=== PATIENT | female | born 1960 | race Caucasian/White ===

== ENCOUNTER 2016-12-23 23:14 | Emergency (ER) | payer OTHER ==
[2016-11-13 16:47] VITALS: BP 130/86
[~2016-12-23 23:14] MED LIST: AMLO10TA2 PO; ASCO500T2 PO; BACL10TA PO; CIPR250T30 PO; CLON1TAB3 PO; CLON2TAB2 PO; CLOP75TA PO; DOXE50CA PO; DULO60CA6 PO; GABA800T2 PO; HYDR-2678 PO; HYDR25TA9 PO; Ipratropium/Albuterol Sulfate NEB; LOSA100T6 PO; METO25TA9 PO; PRED20TA PO; TRAZ100T12 PO; VENL75TA PO; ZINC220C5 PO; [UNRECOGNIZED DRUG - OTHER] PO; amiodipine PO
== END 2016-12-24 00:15 | disposition home or self-care (01) ==
LOC: ER 23:14
DX: R51 Headache (principal); Z53.21 Procedure and treatment not carried out due to patient leaving prior to being seen by health care provider

== ENCOUNTER → 2017-07-20 | Outpatient (CLI) | payer OTHER ==
[2016-11-13 16:47] VITALS: BP 130/86
[~2017-07-20] MED LIST changes: +METO-239 PO; -METO25TA9 PO; +TRAZ-90 PO; -TRAZ100T12 PO
--- NOTE | 2017-07-20 16:09 | RAD ---
Left RIBS with chest, 3 views, 07/20/2017: History: Fall, chest wall pain The bony structures are demineralized. No left rib fracture is identified. There is no evidence of underlying pneumothorax, hemothorax or pulmonary infiltrate. There is scarring over the pulmonary apices. There is a mild thoracic scoliosis. IMPRESSION: No acute left rib abnormality is detected.
== END | disposition home or self-care (01) ==
LOC: DXRADRC 15:44
PROVIDERS: ATTEND General Practice
DX: S20.212A Contusion of left front wall of thorax, initial encounter (principal); J98.4 Other disorders of lung; M41.84 Other forms of scoliosis, thoracic region; E11.9 Type 2 diabetes mellitus without complications; F17.200 Nicotine dependence, unspecified, uncomplicated; W19.XXXA Unspecified fall, initial encounter; Y93.89 Activity, other specified; Y92.89 Other specified places as the place of occurrence of the external cause; Y99.8 Other external cause status
CPT/HCPCS: 71101

== ENCOUNTER 2018-03-07 22:10 | Inpatient (IN) | payer OTHER ==
[~2018-03-07] VITALS: Ht 157.5 cm; Wt 51.1 kg
[~2018-03-07 22:10] MED LIST changes: -CLON1TAB3 PO; +CLON1TAB4 PO; -CLON2TAB2 PO; +CLON2TAB9 PO
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
[2018-03-07 22:53] LABS: BASO # 0.1 x10^3/uL (0.0-0.2); BASO % 1 % (0-3); EOS # 0.3 x10^3/uL (0.0-0.7); EOS % 3 % (0-3); HEMATOCRIT 43.1 % (36.0-47.0); HEMOGLOBIN 14.4 g/dL (12.0-15.5); LYMPH % 32 % (24-48); MEAN CORPUSCULAR HEMOGLOBIN 29 pg (25-35); MEAN CORPUSCULAR HGB CONC 33 g/dL (31-37); MEAN CORPUSCULAR VOLUME 87 fL (79-100); MONO # 0.6 x10^3/uL (0.0-1.1); MONO % 7 % (0-9); NEUT # 5.3 x10^3uL (1.8-7.7); NEUT % 57 % (31-73); PLATELET COUNT 461 x10^3/uL (140-400); RED BLOOD COUNT 4.95 x10^6/uL (3.50-5.40); RED CELL DISTRIBUTION WIDTH 14.5 % (11.5-14.5); WHITE BLOOD COUNT 9.4 x10^3/uL (4.0-11.0)
[2018-03-07] MEDS ORDERED: ZIPRASIDONE IM 20 MG VIAL. IM ONE (23:00)
[2018-03-07 23:08] LABS: ALBUMIN 3.6 g/dL (3.4-5.0); ALBUMIN/GLOBULIN RATIO 0.8 (1.0-1.7); CALCIUM 8.7 mg/dL (8.5-10.1); CREATININE 0.7 mg/dL (0.6-1.0); GFR 86.9; MAGNESIUM 2.6 mg/dL (1.8-2.4); POTASSIUM 3.8 mmol/L (3.5-5.1); TOTAL BILIRUBIN 0.2 mg/dL (0.2-1.0)
[2018-03-07 23:19] LABS: BACTERIA,URINE 0 /HPF (0-FEW); BARBITURATES NEG (NEG); BENZODIAZEPINES POS (NEG); BILIRUBIN,URINE NEG (NEG); CANNABINOIDS NEG (NEG); CLARITY,URINE CLEAR; COCAINE NEG (NEG); COLOR,URINE YELLOW; GLUCOSE,URINE NEG (NEG); METHADONE NEG (NEG); NITRITE,URINE NEG (NEG); OPIATES NEG (NEG); PHENCYCLIDINE NEG (NEG); RBC,URINE 0 /HPF (0-2); SQUAMOUS EPITHELIAL CELL,UR OCC /LPF; UROBILINOGEN,URINE 0.2 mg/dL (0.2 mg/dL); WBC,URINE OCC /HPF (0-4)
[2018-03-07 23:20] LABS: AMPHETAMINE/METHAMPHETAMINE POS (NEG)
--- NOTE | 2018-03-07 23:47 | EKG ---
[address] [address] Test Date: 2018-03-07 Test Time: 23:42:34 Pat Name: SUSSY REYNAGA Department: Room: Gender: F Ct Technician: COOKIE : 1960 Requested By: CHANTEL ESTES Order Number: [id number] Reading MD: Kyle Dawson MD Measurements Intervals [place] Rate: 93 P: 58 MO: 152 QRS: 52 QRSD: 80 T: 67 QT: 390 QTc: 488 Interpretive Statements SINUS RHYTHM Electronically Signed On 03-13-2018 13:42:56 CDT by Kyle Dawson MD
[2018-03-08] VITALS (11 sets, daily range): BP systolic 92–167; BP diastolic 60–102
--- NOTE | 2018-03-08 00:01 | RAD ---
Indication: Intoxicated. Trauma to head and face. Epistaxis. Lacerations. Limited clinical exam Technique: Noncontrast CT head was obtained. CT cervical spine includes axial images and coronal and sagittal reformatted images. No comparison is available. One or more of the following individualized dose reduction techniques were utilized for this examination: 1. Automated exposure control 2. Adjustment of the mA and/or kV according to patient size 3. Use of iterative reconstruction technique Findings: Head: There is prominence of the ventricles and sulci. There are old infarcts involving the right temporal lobe, right parietal lobe, right frontal lobe, left frontal lobe, left parietal lobe, and left cerebellum. There is no evidence of an acute infarct. There is no acute intracranial hemorrhage or extra-axial fluid collection. There is no mass effect or midline shift. There is right maxillary and bilateral ethmoid mucosal thickening. Mastoid air cells are clear. Cervical spine: There is no fracture or dislocation. Prevertebral soft tissues are within normal limits. There is straightening of cervical lordosis. Craniovertebral junction is unremarkable. Endplate spurring is noted from C3-C4 through C7-T1. There is also uncinate process spurring. There is probably mild canal stenosis at C3-C4, C4-C5, and C5-C6. There are several levels of high-grade foraminal narrowing. There are carotid artery calcifications. There is presumed apical scarring in the left lung apex. IMPRESSION: Head: 1. No acute intracranial findings. 2. Multiple old infarcts. Cervical spine: 1. Negative for an acute fracture or dislocation in the cervical spine. 2. Degenerative changes in the cervical spine. Electronically signed by: Dick Mccallum MD (03/07/2018 11:57 PM) [facility]
--- NOTE | 2018-03-08 00:08 | RAD ---
Indication: Intoxicated. Trauma. Epistaxis. Swelling. Technique: Axial images and coronal and sagittal reformatted images are provided. No comparison is available. One or more of the following individualized dose reduction techniques were utilized for this examination: 1. Automated exposure control 2. Adjustment of the mA and/or kV according to patient size 3. Use of iterative reconstruction technique Findings: There is no orbital fracture. Zygomatic arches are intact. There is probably a nasal bone fracture on the left although this is not clearly acute. Pterygoid plates are intact. There is motion at the level of the mandible, no definite mandible fracture. The left mandibular condyle is subluxed anteriorly although given flattening of the mandibular condyle this may be a chronic process. No definite fracture at this site is apparent. Correlate clinically. There is ethmoid and maxillary mucosal thickening, greater on the right. There is no hemosinus. Mastoid air cells are clear. Orbital contents are unremarkable. There is nasal septal deviation to the left. IMPRESSION: 1. Motion limited study demonstrates no definite acute fracture. There is a nasal bone fracture on the left although this is not clearly acute. Electronically signed by: Dick Mccallum MD (03/08/2018 12:04 AM) [facility]
[2018-03-08] MEDS ORDERED: ONDANSETRON PF 4 MG/2 ML VIAL. IV PRN (01:00)
[2018-03-08] MEDS ORDERED: ACETAMINOPHEN 325 MG TABLET PO PRN (01:00)
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
[2018-03-08] MEDS: IV NORMAL SALINE 1,000ML 1,000 ML IV SCH ×3 (01:21→16:58)
[2018-03-08 08:51] LABS: BASO # 0.1 x10^3/uL (0.0-0.2); BASO % 1 % (0-3); EOS # 0.2 x10^3/uL (0.0-0.7); EOS % 2 % (0-3); HEMATOCRIT 40.3 % (36.0-47.0); HEMOGLOBIN 13.3 g/dL (12.0-15.5); LYMPH # 2.2 x10^3/uL (1.0-4.8); LYMPH % 16 % (24-48); MEAN CORPUSCULAR HEMOGLOBIN 29 pg (25-35); MEAN CORPUSCULAR HGB CONC 33 g/dL (31-37); MEAN CORPUSCULAR VOLUME 87 fL (79-100); MONO # 0.8 x10^3/uL (0.0-1.1); MONO % 6 % (0-9); NEUT # 10.3 x10^3uL (1.8-7.7); NEUT % 76 % (31-73); PLATELET COUNT 436 x10^3/uL (140-400); RED BLOOD COUNT 4.63 x10^6/uL (3.50-5.40); RED CELL DISTRIBUTION WIDTH 14.6 % (11.5-14.5); WHITE BLOOD COUNT 13.6 x10^3/uL (4.0-11.0)
[2018-03-08 08:54] LABS: CREATININE 0.6 mg/dL (0.6-1.0); GFR 103.8; POTASSIUM 4.1 mmol/L (3.5-5.1)
[2018-03-08] MEDS ORDERED: HYDR-2766 PO (10:46)
[2018-03-08] MEDS ORDERED: HYDROcodone/APAP 5/325MG 1 TAB TABLET PO PRN (11:15)
[2018-03-08] MEDS ORDERED: clonazePAM 1 MG TABLET PO PRN (11:15)
[2018-03-08] MEDS: HYDROcodone/APAP 10/325 1 TAB TABLET PO PRN ×3 (11:59→21:53)
[2018-03-08] MEDS: clonazePAM 1 MG TABLET PO PRN ×2 (11:59→17:10)
[2018-03-08] MEDS: NICOTINE 14MG PATCH. TD SCH (12:48)
[2018-03-08] MEDS ORDERED: ONDA4TAB12 PO (14:07)
[2018-03-08] MEDS ORDERED: ATOR10TA60 PO (14:07)
[2018-03-08] MEDS ORDERED: CITA10TA4 PO (14:07)
[2018-03-08] MEDS ORDERED: AMLO10TA2 PO (14:07)
--- NOTE | 2018-03-08 14:43 | NUR ---
IP: patient has hx of +MRSA nasal screen 06/21/15, requires contact precautions until 2 negative results. One negative result from 09/11/2015.
--- NOTE | 2018-03-08 15:32 | RAD ---
PQRS Compliance Statement: One or more of the following individualized dose reduction techniques were utilized for this examination: 1. Automated exposure control 2. Adjustment of the mA and/or kV according to patient size 3. Use of iterative reconstruction technique CT chest without contrast March 08, 2018 INDICATION: Rib and shoulder fracture. COMPARISON: Left rib radiograph July 20, 2017. TECHNIQUE: Multiple axial CT images of the chest were obtained without intravenous contrast. Coronal and sagittal reformats are provided. FINDINGS: The thyroid gland is normal in appearance. There are no pathologically enlarged axillary, mediastinal or hilar lymph nodes. Heart size is within normal limits. There is no pericardial effusion. Minor coronary artery vascular calcific effusions are present. Thoracic aorta measures up to 3.5 cm. Minor atherosclerotic changes of the thoracic aorta are present. Patchy groundglass changes are identified in the bilateral lower lobes which may reflect subsegmental atelectasis. More tree-in-bud nodularity is noted in the left lower lobe which may reflect a bronchiolitis. Bronchial wall thickening is compatible with bronchitis. There are no pleural effusions. No pulmonary vascular congestion or pneumothorax. Suspect a 2.1 cm simple appearing renal cyst in the superior pole the right kidney. This may be confirmed with renal ultrasound. There is focal increased sclerosis involving the anterolateral left eighth rib which is partially excluded on this examination due to the field of view. This may represent a nondisplaced rib fracture. Motion artifact limits evaluation of the right ribs. No definite scapular fracture is visualized. Proximal humerus appears intact on the right. Right glenohumeral joint is normal in appearance. IMPRESSION: 1. There may be a nondisplaced left anterolateral eighth rib fracture. No definite right shoulder fracture. 2. Bronchitis with tree-in-bud nodular airspace disease in the left lower lobe suggestive of infectious/inflammatory bronchiolitis. Electronically signed by: Jaylin Vidal MD (03/08/2018 3:29 PM) [facility]
[2018-03-08] MEDS ORDERED: clonazePAM 2 MG TABLET PO PRN (17:00)
[2018-03-08] MEDS ORDERED: ONDANSETRON 4MG ODT 4TABLET STARTPACK. PO PRN (17:15)
[2018-03-08] MEDS ORDERED: ONDANSETRON ODT 4 MG TAB.RAPDIS PO PRN (17:15)
[2018-03-08] MEDS: LIDOCAINE (700MG/PATCH) PATCH. TD SCH (17:18)
[2018-03-08] MEDS: IPRATRPIUM/ALBUTEROL 0.5/2.5MG 3 ML NEBU. NEB SCH ×2 (17:44→22:00)
[2018-03-08] MEDS ORDERED: NON FORMULARY ITEM ([Ipratropium/Albuterol Sulfate] 3 ML) NEB SCH (18:00)
--- NOTE | 2018-03-08 19:45 | NUR ---
Pt is restless and is requesting her pain medication. She had received her pain meds 2 hours ago and it is too early for them. Pt is worried that her "son" has not brought her purse to hospital. Patient states she does not know her "son"s name or what name he is going by right now. Pt also states he is not her biological son. She does not have any correct phone numbers for any friends. Explained to pt that we can not locate her "son" if she can not provide us with a name. She is remembering more of the events of last night, but can not remember his name.
[2018-03-08] MEDS ORDERED: PATCH REMOVAL. MC SCH (21:00)
[2018-03-08] MEDS ORDERED: traZODone 100 MG TABLET. PO SCH (21:00)
[2018-03-08] MEDS ORDERED: ATORVASTATIN CALCIUM 10 MG TABLET. PO SCH (21:00)
[2018-03-08] MEDS: GABAPENTIN 400 MG CAPSULE. PO SCH (21:52)
[2018-03-08] MEDS: BACLOFEN 10 MG TABLET PO SCH (21:52)
[2018-03-09 05:46] VITALS: BP 129/80
[2018-03-09] MEDS: HYDROcodone/APAP 10/325 1 TAB TABLET PO PRN ×2 (05:54→12:31)
[2018-03-09] MEDS: IPRATRPIUM/ALBUTEROL 0.5/2.5MG 3 ML NEBU. NEB SCH ×3 (06:00→14:00)
[2018-03-09 07:54] LABS: BASO # 0.1 x10^3/uL (0.0-0.2); BASO % 1 % (0-3); EOS # 0.3 x10^3/uL (0.0-0.7); EOS % 3 % (0-3); HEMATOCRIT 38.9 % (36.0-47.0); HEMOGLOBIN 12.8 g/dL (12.0-15.5); LYMPH # 2.9 x10^3/uL (1.0-4.8); LYMPH % 31 % (24-48); MEAN CORPUSCULAR HEMOGLOBIN 29 pg (25-35); MEAN CORPUSCULAR HGB CONC 33 g/dL (31-37); MEAN CORPUSCULAR VOLUME 88 fL (79-100); MONO # 0.8 x10^3/uL (0.0-1.1); MONO % 8 % (0-9); NEUT # 5.2 x10^3uL (1.8-7.7); NEUT % 57 % (31-73); PLATELET COUNT 366 x10^3/uL (140-400); RED BLOOD COUNT 4.43 x10^6/uL (3.50-5.40); RED CELL DISTRIBUTION WIDTH 14.7 % (11.5-14.5); WHITE BLOOD COUNT 9.1 x10^3/uL (4.0-11.0)
[2018-03-09 08:05] LABS: CALCIUM 8.9 mg/dL (8.5-10.1); CREATININE 0.8 mg/dL (0.6-1.0); GFR 74.5; POTASSIUM 3.9 mmol/L (3.5-5.1)
[2018-03-09] MEDS ORDERED: CLOPIDOGREL BISULFATE 75 MG TABLET PO SCH (09:00)
[2018-03-09] MEDS ORDERED: CITALOPRAM 10 MG TABLET. PO SCH (09:00)
[2018-03-09] MEDS ORDERED: amLODIPine BESYLATE 10 MG TABLET PO SCH (09:00)
[2018-03-09] MEDS: LIDOCAINE (700MG/PATCH) PATCH. TD SCH (09:00)
[2018-03-09] MEDS ORDERED: LOSARTAN 50 MG TABLET. PO SCH (09:00)
[2018-03-09] MEDS: GABAPENTIN 400 MG CAPSULE. PO SCH ×3 (09:17→18:04)
[2018-03-09] MEDS: clonazePAM 1 MG TABLET PO PRN ×2 (09:17→17:49)
[2018-03-09] MEDS: BACLOFEN 10 MG TABLET PO SCH ×3 (09:18→18:04)
[2018-03-09] MEDS: NICOTINE 14MG PATCH. TD SCH (09:20)
[2018-03-09 11:46] VITALS: BP 108/67
--- NOTE | 2018-03-09 16:48 | NUR ---
Spoke with Dilia from Dr. Avina office, states she is getting fitting for a wheelchair next tuesday and will need to go into the office to be fitted. Plan is to discharge from hospital today with [facility] to take patient to residence. IV discontinued at this time. Only belongings patient has is shoes, shirt and two bottles of Klonipin. No wheelchair or purse was brought in with patient. Wheelchair and clothes have been donated to on license of [facility] and [facility] welfare case worker aware of patient status and is working with patient.
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
--- NOTE | 2018-03-09 18:20 | NUR ---
[facility] here at this time, patient left hospital with wheelchair donated and belongings. Patient understand discharge instructions at this time.
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
--- NOTE | 2018-03-10 14:36 | DS ---
DATE OF DISCHARGE: 03/09/2018 HOSPITAL COURSE: The patient was admitted with toxic encephalopathy, closed head injury as well as possible nasal bone fracture. Her imaging studies showed no evidence of any acute fracture or dislocation of her cervical spine. There was no intracranial hemorrhage, but on other pathologies; however, she has multiple old infarcts. The nasal bone fracture was per the radiologist reports seemed to be an old fracture. The patient remained hemodynamically stable, back to her usual self, rolling her wheelchair on her own without assistance. It was felt that the patient is safe to be discharged back to the homeless [facility] normally stays. She did not require any further chemical restraints as she on admission day as she was very combative, requiring Geodon administration for agitation. PHYSICAL EXAMINATION: GENERAL: On the day of discharge, she looked well and was clearly in no apparent respiratory distress, pale and in fact, there was no pallor, jaundice, cyanosis, or thyromegaly. No jugular venous distension, no lower limb edema. VITAL SIGNS: Her heart rate was 81, blood pressure was 129/80, temperature was 98, respiratory rate was 20, and oxygen saturation was 96% on room air. The rest of the clinical examination is stable, has not really changed. LABORATORY DATA: Her lab work showed a white cell count of 9000, hemoglobin 13, hematocrit 39, MCV 88, and platelet count 266,000. Her serum sodium was 142, potassium 3.9, chloride 106, bicarbonate 24, anion gap of 12, BUN 14, creatinine 0.8, estimated GFR was 75 mL per minute. Her glucose was 96, calcium was 8.9. Urinalysis was unremarkable. Toxic screen was positive for methamphetamine and benzodiazepine as well as alcohol with the blood alcohol level was 188. DISCHARGE MEDICATIONS: She was discharged to continue amlodipine 10 mg once a day, atorvastatin calcium 10 mg once a day, baclofen 10 mg 3 times a day, citalopram hydrobromide 10 mg daily, clonazepam 2 mg p.o. q. 12 hourly, Plavix 75 mg once a day, gabapentin 800 mg 3 times a day, hydrocodone/CPAP 10/325 one tablet every 6 hours. She is also on DuoNeb 3 mL by nebulizer every 4 hours, losartan potassium 100 mg once a day, ondansetron 4 mg every 4 hours, and trazodone 100 mg at bedtime for sleep. FINAL DISCHARGE DIAGNOSES: Toxic encephalopathy, multiple polysubstance abuse including methamphetamine, alcohol, and benzodiazepine, and closed head injury. JOE GABRIEL MD DR: NEREYDA/bernardo JOB#: [id number] / [id number]
== END 2018-03-09 18:23 | disposition home health service (06) | DRG 913 ==
LOC: ER 22:10 → ICU 03-08 00:18 → 1 SOUTH 03-08 09:57
PROVIDERS: ADMIT Internal Medicine; ATTEND Internal Medicine
DX: S09.90XA Unspecified injury of head, initial encounter (principal); G92 Toxic encephalopathy; G89.4 Chronic pain syndrome; F17.210 Nicotine dependence, cigarettes, uncomplicated; S02.2XXA Fracture of nasal bones, initial encounter for closed fracture; M47.812 Spondylosis without myelopathy or radiculopathy, cervical region; I10 Essential (primary) hypertension; F32.9 Major depressive disorder, single episode, unspecified; Y90.6 Blood alcohol level of 120-199 mg/100 ml; F41.9 Anxiety disorder, unspecified; F10.129 Alcohol abuse with intoxication, unspecified; W05.0XXA Fall from non-moving wheelchair, initial encounter; Z88.6 Allergy status to analgesic agent; Z88.0 Allergy status to penicillin; Z88.8 Allergy status to other drugs, medicaments and biological substances; Y93.89 Activity, other specified; Y92.89 Other specified places as the place of occurrence of the external cause; Y99.8 Other external cause status; Z59.0 Homelessness; Z87.440 Personal history of urinary (tract) infections; Z86.73 Personal history of transient ischemic attack (TIA), and cerebral infarction without residual deficits
CPT/HCPCS: 36415; 70450; 70486; 71250; 72125; 80048; 80053; 80307; 81001; 83735; 85025; 87641; 93005; 94640; 96372; G0480; J3486; J7620; 99285-25; G0479; J7030

== ENCOUNTER 2018-06-26 14:12 | Emergency (ER) | payer OTHER ==
[~2018-06-26] VITALS: Ht 167.6 cm; Wt 61.2 kg
[~2018-06-26 14:12] MED LIST changes: -AMLO10TA2 PO; +AMLO10TA6 PO; +ATOR10TA60 PO; +CITA10TA4 PO; +HYDR-2766 PO; -LOSA100T6 PO; +LOSA100T7 PO; +ONDA4TAB12 PO; +TRAZ-86 PO; -TRAZ-90 PO
--- NOTE | 2018-06-26 15:41 | RAD ---
CT of the head without contrast, 06/26/2018: HISTORY: Fall, head pain Comparison is made to a study from 03/07/2018. There is moderate cerebral atrophy. Moderate encephalomalacia is present in the right parietal region compatible with an old infarct. Some of the other bilateral prominent sulci also probably reflect old cortical infarcts. The ventricles are mildly prominent on a compensatory basis. There is no shift of the midline structures. There is no evidence of acute intracranial hemorrhage or mass effect. A small density along the posterior aspect of the left maxillary sinus is probably a retention cyst. There are defects in the medial smith of both maxillary sinuses compatible with prior surgery. IMPRESSION: 1. Chronic findings as described above. 2. No acute intracranial abnormality is detected. PQRS Compliance Statement: One or more of the following individualized dose reduction techniques were utilized for this examination: 1. Automated exposure control 2. Adjustment of the mA and/or kV according to patient size 3. Use of iterative reconstruction technique Electronically signed by: Duane Tucker MD (06/26/2018 3:37 PM) [facility]
--- NOTE | 2018-06-26 15:44 | RAD ---
Left RIBS with chest, 3 views, 06/26/2018: HISTORY: Fall, pain No acute left rib fracture is identified. There is a mild thoracic scoliosis. There is minimal streaky left basilar opacity laterally suggesting atelectasis and/or scarring. There is no evidence of pneumothorax or significant pleural fluid. IMPRESSION: 1. No acute left rib abnormality is detected. 2. Minimal left basilar atelectasis. Electronically signed by: Duane Tucker MD (06/26/2018 3:41 PM) [facility]
--- NOTE | 2018-06-26 17:39 | PHYS DOC ---
Past History Past Medical History: Anxiety, CVA, High Cholesterol, Hypertension, Other Past Surgical History: Appendectomy, Other Smoking: Cigarettes Alcohol Use: None Drug Use: None Adult General Chief Complaint Chief Complaint: MECHANICAL FALL HPI HPI 58-year-old female presents with head pain and rib pain. The patient states that she fell at a hotel that she staying at Tuesday evening. She states that she was trying to get into her wheelchair and fell forward and hit her head on the ground as well as her ribs. She continued to have pain yesterday and decided to come to the hospital today. The patient is here from [facility]. She came here because she thought she had a place to live with a friend. She was transferred from [facility] and [place]. The place to stay didn't work out and she has been staying in a hotel. The patient is very concerned about what she will do and would like to go back to [place]. Review of Systems Review of Systems Constitutional: Denies fever or chills [] Eyes: Denies change in visual acuity, redness, or eye pain [] HENT: Denies nasal congestion or sore throat [] Respiratory: Denies cough or shortness of breath [] Cardiovascular: No additional information not addressed in HPI [] GI: Denies abdominal pain, nausea, vomiting, bloody stools or diarrhea [] : Denies dysuria or hematuria [] Musculoskeletal: Rib pain[] Integument: Denies rash or skin lesions [] Neurologic: Denies headache, focal weakness or sensory changes [] Endocrine: Denies polyuria or polydipsia [] All other systems were reviewed and found to be within normal limits, except as documented in this note. Allergies Allergies Allergies Coded Allergies Type Severity Reaction Last Updated Verified Penicillins Allergy Intermediate hives 06/26/18 Yes aspirin Allergy Unknown throat swells up. 06/26/18 Yes coconut oil Adverse Reaction Severe Rash 06/26/18 Yes Physical Exam Physical Exam Constitutional: Well developed, well nourished, no acute distress, non-toxic appearance. [] HENT: Normocephalic, atraumatic, bilateral external ears normal, oropharynx moist, no oral exudates, nose normal. [] Eyes: PERRLA, EOMI, conjunctiva normal, no discharge. [] Neck: Normal range of motion, no tenderness, supple, no stridor. [] Cardiovascular:Heart rate regular rhythm, no murmur [] Lungs & Thorax: Bilateral breath sounds clear to auscultation. It was over the anterior ribs bilaterally[] Abdomen: Bowel sounds normal, soft, no tenderness, no masses, no pulsatile masses. [] Skin: Warm, dry, no erythema, no rash. [] Back: No tenderness, no CVA tenderness. [] Extremities: No tenderness, no cyanosis, no clubbing, ROM intact, no edema. [] Neurologic: Alert and oriented X 3, normal motor function, normal sensory function, no focal deficits noted. [] Psychologic: Affect normal, judgement normal, mood normal. [] Current Patient Data Vital Signs Vital Signs Date Time Temp Pulse Resp B/P (MAP) Pulse Ox O2 Delivery O2 Flow Rate FiO2 06/26/18 16:42 84 18 118/88 (98) 96 Room Air 06/26/18 14:12 98.0 EKG EKG [] Radiology/Procedures Radiology/Procedures [] Impressions: CT of the head without contrast, 06/26/2018: HISTORY: Fall, head pain Comparison is made to a study from 03/07/2018. There is moderate cerebral atrophy. Moderate encephalomalacia is present in the right parietal region compatible with an old infarct. Some of the other bilateral prominent sulci also probably reflect old cortical infarcts. The ventricles are mildly prominent on a compensatory basis. There is no shift of the midline structures. There is no evidence of acute intracranial hemorrhage or mass effect. A small density along the posterior aspect of the left maxillary sinus is probably a retention cyst. There are defects in the medial smith of both maxillary sinuses compatible with prior surgery. IMPRESSION: 1. Chronic findings as described above. 2. No acute intracranial abnormality is detected. RS Compliance Statement: One or more of the following individualized dose reduction techniques were utilized for this examination: 1. Automated exposure control 2. Adjustment of the mA and/or kV according to patient size 3. Use of iterative reconstruction technique Electronically signed by: Duane Tucker MD (06/26/2018 3:37 PM) [facility] DICTATED AND SIGNED BY: DUANE TUCKER MD DATE: 06/26/18 1533 CC: ANDREA MIRZA DO; PATTIE BLAS DO ~ Left RIBS with chest, 3 views, 06/26/2018: HISTORY: Fall, pain No acute left rib fracture is identified. There is a mild thoracic scoliosis. There is minimal streaky left basilar opacity laterally suggesting atelectasis and/or scarring. There is no evidence of pneumothorax or significant pleural fluid. IMPRESSION: 1. No acute left rib abnormality is detected. 2. Minimal left basilar atelectasis. Electronically signed by: Duane Tucker MD (06/26/2018 3:41 PM) [facility] DICTATED AND SIGNED BY: DUANE TUCKER MD DATE: 06/26/18 1537 CC: ANDREA MIRZA DO; PATTIE BLAS DO Course & Med Decision Making Course & Med Decision Making Pertinent Labs and Imaging studies reviewed. (See chart for details) The patient's head CT is negative for acute findings. Her x-rays are negative for fracture. The patient is in a wheelchair because she had a stroke and does not have good strength in her left leg. She also has balance issues. I do not have any reason to keep the patient in the hospital. I have no idea how to get her back to [place]. We will work on some form of placement. [facility]. [] Dragon Disclaimer Dragon Disclaimer This electronic medical record was generated, in whole or in part, using a voice recognition dictation system. Departure Departure: Referrals: ANDREA MIRZA DO (PCP) PATTIE BLAS DO Jun 26, 2018 17:39
[2018-06-26 17:45] VITALS: BP 138/91
== END 2018-06-26 18:00 | disposition home or self-care (01) ==
LOC: ER 14:12
DX: R51 Headache (principal); R07.81 Pleurodynia; G89.11 Acute pain due to trauma; J98.11 Atelectasis; F41.9 Anxiety disorder, unspecified; E78.00 Pure hypercholesterolemia, unspecified; I10 Essential (primary) hypertension; F17.210 Nicotine dependence, cigarettes, uncomplicated; Z86.73 Personal history of transient ischemic attack (TIA), and cerebral infarction without residual deficits; Z88.0 Allergy status to penicillin; Z88.6 Allergy status to analgesic agent; Z91.048 Other nonmedicinal substance allergy status; W05.0XXA Fall from non-moving wheelchair, initial encounter; Y93.89 Activity, other specified; Y92.59 Other trade areas as the place of occurrence of the external cause; Y99.8 Other external cause status
CPT/HCPCS: 70450; 71101; 99284-25

== ENCOUNTER 2019-02-27 17:59 | Observation (INO) | payer OTHER ==
[~2019-02-27] VITALS: Ht 168.9 cm; Wt 47.7 kg
[~2019-02-27 17:59] MED LIST changes: -AMLO10TA6 PO; +AMLO10TA8 PO; +CLON1TAB11 PO; -CLON1TAB4 PO; -GABA800T2 PO; +GABA800T5 PO; +HYDR-2145 PO; -HYDR-2766 PO; +HYDR-2769 PO; -HYDR25TA9 PO; +LOSA100T14 PO; -LOSA100T7 PO
[2019-02-27] MEDS ORDERED: IV NORMAL SALINE 1,000ML 1,000 ML IV SCH (18:07)
--- NOTE | 2019-02-27 18:28 | RAD ---
EXAM: Head CT without contrast. HISTORY: Code stroke. TECHNIQUE: Computed tomographic images of the head were obtained without contrast. *One or more of the following individualized dose reduction techniques were utilized for this examination: 1. Automated exposure control. 2. Adjustment of the mA and/or kV according to patient size. 3. Use of iterative reconstruction technique. COMPARISON: 06/26/2018. FINDINGS: There is no acute or subacute extra-axial or intraparenchymal hemorrhage. There is no mass effect or midline shift. There is no hydrocephalus. There are focal areas of hypodensity due to chronic infarction within the right greater than left frontal and parietal lobes and right temporal occipital junction. There is cerebral volume loss, greater than expected for patient age. There is paranasal sinus mucosal thickening. There are bilateral donnell bullosa. The mastoid air cells are clear. No calvarial lesion is seen. IMPRESSION: 1. No acute intracranial finding. Note is made that MRI is more sensitive for acute infarction. 2. Chronic infarcts within the right greater than left cerebral hemispheres, stable in appearance. 3. Cerebral volume loss, greater than expected for patient age. Findings were discussed with Dr. Fitch in the ED at 1820 hours on 02/27/2019. Electronically signed by: Zuri Brothers MD (02/27/2019 6:25 PM) [facility]
[2019-02-27 18:50] LABS: BASO # 0.1 x10^3/uL (0.0-0.2); BASO % 1 % (0-3); EOS # 0.1 x10^3/uL (0.0-0.7); EOS % 1 % (0-3); HEMATOCRIT 47.6 % (36.0-47.0); HEMOGLOBIN 16.1 g/dL (12.0-15.5); LYMPH # 1.4 x10^3/uL (1.0-4.8); LYMPH % 11 % (24-48); MEAN CORPUSCULAR HEMOGLOBIN 29 pg (25-35); MEAN CORPUSCULAR HGB CONC 34 g/dL (31-37); MEAN CORPUSCULAR VOLUME 85 fL (79-100); MONO # 0.6 x10^3/uL (0.0-1.1); MONO % 5 % (0-9); NEUT # 10.2 x10^3uL (1.8-7.7); NEUT % 83 % (31-73); PLATELET COUNT 432 x10^3/uL (140-400); RED BLOOD COUNT 5.62 x10^6/uL (3.50-5.40); RED CELL DISTRIBUTION WIDTH 14.3 % (11.5-14.5); WHITE BLOOD COUNT 12.3 x10^3/uL (4.0-11.0)
--- NOTE | 2019-02-27 19:02 | RAD ---
EXAM: Chest, single view. HISTORY: Weakness. COMPARISON: CT dated 03/08/2018 FINDINGS: A frontal view of the chest obtained. There is increased opacity overlying both mid lungs likely due to asymmetric overlying soft tissue artifact. There is no convincing filtrate, pleural effusion or pneumothorax. The heart is normal in size. There is hyperinflation due to inspiratory effort or emphysema. IMPRESSION: No acute pulmonary finding. Electronically signed by: Zuri Brothers MD (02/27/2019 6:59 PM) [facility]
[2019-02-27 19:06] LABS: ALBUMIN 4.1 g/dL (3.4-5.0); CALCIUM 9.7 mg/dL (8.5-10.1); CREATININE 0.6 mg/dL (0.6-1.0); GFR 103.4; POTASSIUM 3.7 mmol/L (3.5-5.1); TOTAL BILIRUBIN 0.4 mg/dL (0.2-1.0); TOTAL PROTEIN 8.4 g/dL (6.4-8.2)
--- NOTE | 2019-02-27 19:10 | PHYS DOC ---
Past History Past Medical History: Anxiety, CVA, High Cholesterol, Hypertension, Stroke, Other Past Surgical History: Appendectomy, Other Smoking: Cigarettes Alcohol Use: None Drug Use: None Adult General Chief Complaint Chief Complaint: NEURO SYMPTOMS/DEFICITS [facility] Patient is a 58-year-old female who presents via EMS with report of acute strokelike symptoms. Patient's last normal was around 9 AM this morning. EMS reports that an individual had gone to check on her and found that patient had significant right-sided facial droop and worsened slurred speech than usual. Patient presents complaining of splitting headache that she rates at 8 out of 10. She denies any nausea or vomiting. She denies any chest pain or shortness of breath. Patient does have long history of illicit drug abuse and does admit to continued use of numerous illicit drugs.[] Review of Systems Review of Systems Constitutional: Denies fever or chills [] Eyes: Denies change in visual acuity, redness, or eye pain [] Respiratory: Denies cough or shortness of breath [] Cardiovascular: No additional information not addressed in HPI [] GI: Denies abdominal pain, nausea, vomiting or diarrhea [] Neurologic: Complains of headache with slurred speech and facial droop [] All other systems were reviewed and found to be within normal limits, except as documented in this note. Current Medications Current Medications Current Medications Medications (Trade) Dose Ordered Sig/Binh Start Time Stop Time Status Last Admin Dose Admin Sodium Chloride 1,000 ml @ 100 mls/hr Q10H 02/27/19 18:07 02/28/19 04:06 Allergies Allergies Allergies Coded Allergies Type Severity Reaction Last Updated Verified Penicillins Allergy Intermediate hives 06/26/18 Yes aspirin Allergy Unknown throat swells up. 06/26/18 Yes coconut oil Adverse Reaction Severe Rash 06/26/18 Yes Physical Exam Physical Exam Constitutional: Awake and alert, no acute distress, non-toxic appearance. [] HENT: Normocephalic, atraumatic, bilateral external ears normal, oropharynx moist, no oral exudates, nose normal. [] Eyes: PERRLA, EOMI, conjunctiva normal, no discharge. [] Neck: Normal range of motion, no tenderness, supple, no stridor. [] Cardiovascular: Mildly tachycardic rate with regular rhythm[] Lungs & Thorax: Bilateral breath sounds clear to auscultation [] Abdomen: Bowel sounds normal, soft, no tenderness. [] Skin: Warm, dry, no erythema, no rash. [] Extremities: No tenderness, no cyanosis, no clubbing, ROM intact, no edema. [] Neurologic: Alert and oriented X 3, there is a right-sided facial droop. NIH stroke scale of 14 as noted from nursing documentation. [] Current Patient Data Vital Signs Vital Signs Date Time Temp Pulse Resp B/P (MAP) Pulse Ox O2 Delivery O2 Flow Rate FiO2 02/27/19 18:09 98.1 111 18 96 Room Air Lab Results Laboratory Tests Test 02/27/19 18:31 White Blood Count 12.3 x10^3/uL (4.0-11.0) H Red Blood Count 5.62 x10^6/uL (3.50-5.40) H Hemoglobin 16.1 g/dL (12.0-15.5) H Hematocrit 47.6 % (36.0-47.0) H Mean Corpuscular Volume 85 fL (79-100) Mean Corpuscular Hemoglobin 29 pg (25-35) Mean Corpuscular Hemoglobin Concent 34 g/dL (31-37) Red Cell Distribution Width 14.3 % (11.5-14.5) Platelet Count 432 x10^3/uL (140-400) H Neutrophils (%) (Auto) 83 % (31-73) H Lymphocytes (%) (Auto) 11 % (24-48) L Monocytes (%) (Auto) 5 % (0-9) Eosinophils (%) (Auto) 1 % (0-3) Basophils (%) (Auto) 1 % (0-3) Neutrophils # (Auto) 10.2 x10^3uL (1.8-7.7) H Lymphocytes # (Auto) 1.4 x10^3/uL (1.0-4.8) Monocytes # (Auto) 0.6 x10^3/uL (0.0-1.1) Eosinophils # (Auto) 0.1 x10^3/uL (0.0-0.7) Basophils # (Auto) 0.1 x10^3/uL (0.0-0.2) EKG EKG EKG demonstrates sinus tachycardia with rate of 110.[] Radiology/Procedures Radiology/Procedures [] Impressions: PROCEDURE: CT CODE STROKE HEAD WO EXAM: Head CT without contrast. HISTORY: Code stroke. TECHNIQUE: Computed tomographic images of the head were obtained without contrast. *One or more of the following individualized dose reduction techniques were utilized for this examination: 1. Automated exposure control. 2. Adjustment of the mA and/or kV according to patient size. 3. Use of iterative reconstruction technique. COMPARISON: 06/26/2018. FINDINGS: There is no acute or subacute extra-axial or intraparenchymal hemorrhage. There is no mass effect or midline shift. There is no hydrocephalus. There are focal areas of hypodensity due to chronic infarction within the right greater than left frontal and parietal lobes and right temporal occipital junction. There is cerebral volume loss, greater than expected for patient age. There is paranasal sinus mucosal thickening. There are bilateral donnell bullosa. The mastoid air cells are clear. No calvarial lesion is seen. IMPRESSION: 1. No acute intracranial finding. Note is made that MRI is more sensitive for acute infarction. 2. Chronic infarcts within the right greater than left cerebral hemispheres, stable in appearance. 3. Cerebral volume loss, greater than expected for patient age. Findings were discussed with Dr. Fitch in the ED at 1820 hours on 02/27/2019. Electronically signed by: Zuri Brothers MD (02/27/2019 6:25 PM) [facility] Course & Med Decision Making Course & Med Decision Making Pertinent Labs and Imaging studies reviewed. (See chart for details) [] Dragon Disclaimer Dragon Disclaimer This electronic medical record was generated, in whole or in part, using a voice recognition dictation system. Departure Departure: Impression: Primary Impression: CVA (cerebral vascular accident) Disposition: 09 ADMITTED INPATIENT Admitting Physician: Margoth Mckinley Condition: GOOD Referrals: ANDREA MIRZA DO (PCP) Problem Qualifiers Primary Impression: CVA (cerebral vascular accident) CVA mechanism: unspecified Qualified Codes: I63.9 - Cerebral infarction, unspecified TARUN FITCH Jr., DO Feb 27, 2019 19:10
[2019-02-27] MEDS ORDERED: LABETALOL 20 MG/4 ML DISP.SYRIN. IVP ONE (19:30)
[2019-02-27 19:33] LABS: BARBITURATES NEG (NEG); BENZODIAZEPINES NEG (NEG); CANNABINOIDS NEG (NEG); COCAINE NEG (NEG); METHADONE NEG (NEG); OPIATES NEG (NEG); PHENCYCLIDINE NEG (NEG)
[2019-02-27 19:36] LABS: AMPHETAMINE/METHAMPHETAMINE POS (NEG)
[2019-02-27] MEDS ORDERED: ONDANSETRON PF 4 MG/2 ML VIAL. IV PRN (19:45)
[2019-02-27 21:29] VITALS: BP 145/102
[2019-02-27] MEDS: IV NORMAL SALINE 1,000ML 1,000 ML IV SCH (23:18)
[2019-02-27] MEDS: ACETAMINOPHEN 325 MG TABLET PO PRN (23:18)
[2019-02-27] MEDS ORDERED: TIOT18CA IH (23:55)
[2019-02-28] MEDS: IV NORMAL SALINE 1,000ML 1,000 ML IV SCH ×2 (03:32→11:52)
[2019-02-28 05:09] VITALS: BP 134/88
--- NOTE | 2019-02-28 06:29 | EKG ---
[address] [address] Test Date: 2019-02-27 Test Time: 18:19:22 Pat Name: SUSSY REYNAGA Department: Room: Gender: F [employer]: : [id number] Requested By: TARUN DUNN Order Number: [id number] Reading MD: Measurements Intervals [place] Rate: 110 P: 74 MI: 130 QRS: 24 QRSD: 84 T: 34 QT: 342 QTc: 468 Interpretive Statements SINUS TACHYCARDIA LEFT ATRIAL ABNORMALITY T ABNORMALITY IN INFERIOR LEADS ABNORMAL ECG RI6.01 No previous ECG available for comparison
[2019-02-28] MEDS ORDERED: CLOPIDOGREL BISULFATE 75 MG TABLET PO SCH (08:00)
[2019-02-28] MEDS: ACETAMINOPHEN 325 MG TABLET PO PRN ×2 (08:05→08:08)
--- NOTE | 2019-02-28 09:56 | RAD ---
AP view of the pelvis Clinical indications: Fall with left hip pain. FINDINGS: Nondisplaced fracture of the left inferior pubic ramus is seen. No diastases symphysis pubis or SI joint is seen. No lytic process is evident. Hip joints are symmetric. IMPRESSION: Nondisplaced fracture of the left inferior pubic ramus. Electronically signed by: Yeison Christie MD (02/28/2019 9:53 AM) [id number]
[2019-02-28] MEDS ORDERED: LORazepam 1 MG TABLET PO PRN (10:00)
[2019-02-28] MEDS: HYDROcodone/APAP 5/325MG 1 TAB TABLET PO PRN ×2 (10:17→16:30)
[2019-02-28 11:31] VITALS: BP 160/84
[2019-02-28 13:14] LABS: BASO # 0.1 x10^3/uL (0.0-0.2); BASO % 1 % (0-3); EOS # 0.2 x10^3/uL (0.0-0.7); EOS % 2 % (0-3); HEMATOCRIT 41.3 % (36.0-47.0); HEMOGLOBIN 13.8 g/dL (12.0-15.5); LYMPH # 1.6 x10^3/uL (1.0-4.8); LYMPH % 19 % (24-48); MEAN CORPUSCULAR HEMOGLOBIN 28 pg (25-35); MEAN CORPUSCULAR HGB CONC 34 g/dL (31-37); MEAN CORPUSCULAR VOLUME 85 fL (79-100); MONO # 0.8 x10^3/uL (0.0-1.1); MONO % 9 % (0-9); NEUT # 5.9 x10^3uL (1.8-7.7); NEUT % 69 % (31-73); PLATELET COUNT 349 x10^3/uL (140-400); RED BLOOD COUNT 4.87 x10^6/uL (3.50-5.40); WHITE BLOOD COUNT 8.5 x10^3/uL (4.0-11.0)
[2019-02-28 13:30] LABS: ALBUMIN 3.1 g/dL (3.4-5.0); ALBUMIN/GLOBULIN RATIO 0.9 (1.0-1.7); CALCIUM 8.9 mg/dL (8.5-10.1); CREATININE 0.7 mg/dL (0.6-1.0); GFR 86.6; POTASSIUM 3.4 mmol/L (3.5-5.1); TOTAL BILIRUBIN 0.3 mg/dL (0.2-1.0); TOTAL PROTEIN 6.7 g/dL (6.4-8.2)
--- NOTE | 2019-02-28 19:08 | SSS ---
ADMIT DATE: 02/27/2019 HISTORY OF PRESENT ILLNESS: The patient is a 58-year-old female patient, who was brought to the Emergency Room by emergency medical service personnel with reported of acute stroke-like symptoms. The patient was last normal was seen around 9:00 a.m. this morning. The emergency medical services reports that an individual had gone to check on her and found the patient has significant right-sided facial droop and worsened slurred speech than usual. She presented complaining of splitting headache that she rates at 8/10 in severity. She denied any nausea or vomiting. Denied any chest pain or shortness of breath. The patient does have long history of illicit drug use and does admit to continued using numerous illicit drugs. She was extensively investigated. Her toxic screen was positive for amphetamine, methamphetamine and her lab work showed that she has mild leukocytosis. She has mild leukocytosis and her chemistry was basically unremarkable. She had had a CT scan of the head without contrast, which showed that the patient has no acute intracranial finding. Note is made that MRI is more sensitive for acute infarction. She has chronic infarcts within the right greater than left cerebral hemisphere, stable in appearance, cerebral volume loss greater than expected for patient age. The patient was admitted for observation. The patient initially insisted that she wanted to leave against medical advice and signed even the papers, and then changed her mind. She was basically continued on all her medication and while in the hospital, she started complaining of severe left hip pain and x-ray of the left hip showed that she has nondisplaced fracture of the left inferior pubic ramus. No diastasis symphysis pubis or SI joint seen. No lytic process is evident. Hip joints are symmetric. PAST MEDICAL HISTORY: Significant for substance abuse, recurrent urinary tract infection, hypertension, anxiety, depression, chronic pain syndrome, tobacco use disorder. PAST SURGICAL HISTORY: Unremarkable. FAMILY HISTORY: Unremarkable. SOCIAL HISTORY: She lives apparently alone. She no longer lives with her . She does smoke close to a pack a day, continued to abuse amphetamine and cannabis as well as narcotic. ALLERGIES: SHE IS ALLERGIC TO PENICILLIN, ASPIRIN, AND COCONUT. MEDICATIONS: She is currently on following medications: She is on Spiriva HandiHaler 1 inhalation once a day, baclofen 10 mg 3 times a day, Plavix 75 mg once a day, atorvastatin calcium 10 mg at bedtime, amlodipine 10 mg daily, losartan potassium 100 mg daily, hydrocodone/APAP 10/325 one tablet every 6 hours, clonazepam 2 mg twice a day, gabapentin 800 mg 3 times a day, citalopram hydrobromide 10 mg once a day, trazodone 100 mg p.o. at bedtime, ondansetron 4 mg daily, prothrombin bromide, albuterol sulfate 4 times a day. PHYSICAL EXAMINATION: GENERAL: On arrival to the Emergency Room, she looked well and was clearly in no apparent respiratory distress, pale, but no jaundice, cyanosis, or thyromegaly. No jugular venous distention. No lower limb edema. VITAL SIGNS: Her heart rate was 98, blood pressure was 108/67, temperature was 98.8, respiratory rate was 20, and oxygen saturation was 96%. HEAD, EYES, EARS, NOSE, AND THROAT: Showed normocephalic, atraumatic. NECK: Supple. HEART: Showed normal first and second heart sounds with no gallop, rub or murmur. CHEST: Clear to auscultation. No crepitation or rhonchi. ABDOMEN: Distended, soft, nontender. NEUROLOGIC: She is awake, alert. She does have mild right-sided facial droop. She has some fine dysarthria. LABORATORY DATA: Showed that her white cell count was 12,300, hemoglobin 16, hematocrit 47.6, MCV 85 and platelet count of 432,000. Her chemistry showed a serum sodium 139, potassium 3.7, chloride 101, bicarbonate 24, anion gap of 6, . Estimated GFR was 103. Her glucose was 106, calcium was 9.7. Total bilirubin, AST, ALT, alkaline phosphatase were normal. Total protein was 8.4, albumin 4.1. Her prothrombin time was 9.8, INR of 1, aPTT 26. Urinalysis showed the urine was yellow, clear with a pH of 6, specific gravity 1.005. The urine was negative for protein, glucose, ketones, small amount of blood, negative for nitrite and leukocyte esterase. There are no rbc's, no wbc's, and no bacteria. Toxic screen was positive for amphetamine, negative for opiates, methadone, barbiturates, phencyclidine, benzodiazepine, cocaine, cannabinoids, and alcohol. After admission to the hospital, she complained of severe left-sided hip pain and did an x-ray of her pelvis, which showed that the patient has nondisplaced fracture of the left inferior pubic ramus. No diastasis of symphysis pubis or SI joint is seen. No lytic process is evident. Hip joints are symmetric. As the patient has no evidence of any stroke and left inferior pubic ramus fracture is nondisplaced, and the patient was offered to go to a fci, but she refused and therefore, a decision was made to discharge her home. When I saw her this afternoon, she looked well and was clearly in no apparent respiratory distress. No pallor, jaundice, cyanosis or thyromegaly. No jugular venous distention. No lower limb edema. Her heart rate was 104, blood pressure was 160/84, temperature was 97.8, respiratory rate 22, and oxygen saturation was 96%. Her clinical exam has not really changed. Her lab work showed that her white cell count is 8500, hemoglobin 13.8, hematocrit 41, MCV 85 and platelet count 349,000. Her chemistry showed a serum sodium 141, potassium 3.4, chloride 105, bicarbonate 27, anion gap of 9, BUN 9, creatinine 0.7, estimated GFR was 86 mL per minute. Her glucose was 88, calcium was 8.9. Total bilirubin, AST, ALT, alkaline phosphatase were normal. Total protein was 6.7, albumin 3.1. ASSESSMENT AND PLAN: The patient was discharged home to continue on all her medication that include amlodipine 10 mg once a day, atorvastatin calcium 10 mg at bedtime, baclofen 10 mg 3 times a day, citalopram hydrobromide 10 mg once a day, clonazepam 1 mg 3 tablets every 12 hours, gabapentin 800 mg 3 times a day, Plavix 75 mg once a day, hydrocodone/APAP 10/325 one tablet every 6 hours, ipratropium bromide, albuterol sulfate by nebulizer every 4 hours, losartan potassium 100 mg p.o. daily, ondansetron 4 mg daily, tiotropium bromide/Spiriva inhaler once a day, and trazodone 100 mg at bedtime for insomnia and it is worth noting that the patient was evaluated by Dr. Humphrey; however, we offered to admit the patient to a nursing home facility and she adamantly refused. In fact, initially she signed against to leave against medical advice and was very agitated, aggressive, and belligerent. Given that she has no evidence of any new stroke and that left anterior pubic ramus fracture is nondisplaced, she was discharged to continue on her pain medication. FINAL DISCHARGE DIAGNOSES: Altered mental status, likely due to amphetamine abuse and perhaps fall, although I have no documentation of that and she has left anterior pubic rami displaced fracture. She has multiple other medical problems including hypertension, hyperlipidemia, depression, multiple cerebrovascular accidents, chronic obstructive pulmonary disease, and polysubstance abuse. JOE GABRIEL MD DR: NEREYDA/bernardo JOB#: [id number] / [id number]
== END 2019-02-28 17:50 | disposition home or self-care (01) ==
LOC: ER 17:59 → INTOOBSV 19:50 → 1 SOUTH 19:50
PROVIDERS: ADMIT Internal Medicine; ATTEND Internal Medicine
DX: R41.82 Altered mental status, unspecified (principal); I63.9 Cerebral infarction, unspecified; J44.9 Chronic obstructive pulmonary disease, unspecified; F41.9 Anxiety disorder, unspecified; E78.00 Pure hypercholesterolemia, unspecified; I10 Essential (primary) hypertension; F17.200 Nicotine dependence, unspecified, uncomplicated; R47.81 Slurred speech; D72.829 Elevated white blood cell count, unspecified; F32.9 Major depressive disorder, single episode, unspecified; F15.10 Other stimulant abuse, uncomplicated; R29.810 Facial weakness; G89.4 Chronic pain syndrome; E78.5 Hyperlipidemia, unspecified; F19.90 Other psychoactive substance use, unspecified, uncomplicated; Z79.899 Other long term (current) drug therapy; Z87.440 Personal history of urinary (tract) infections; Z79.02 Long term (current) use of antithrombotics/antiplatelets; Z90.49 Acquired absence of other specified parts of digestive tract
CPT/HCPCS: 36415; 70450; 71045; 72170; 80053; 80307; 85025; 85610; 85730; 93005; 96361; 96374; 96375; 99284; G0378; J2405; J3490; G0379; 99285-25; J7030

== ENCOUNTER 2019-11-13 12:56 | Emergency (ER) | payer OTHER ==
[~2019-11-13] VITALS: Ht 168.9 cm; Wt 45.4 kg
[~2019-11-13 12:56] MED LIST changes: +TIOT18CA IH; +TRAZ-125 PO; -TRAZ-86 PO; -ZINC220C5 PO; +ZINC220C7 PO
[2019-11-13 14:40] LABS: BASO # 0.1 x10^3/uL (0.0-0.2); BASO % 1 % (0-3); EOS # 0.4 x10^3/uL (0.0-0.7); EOS % 5 % (0-3); HEMATOCRIT 39.9 % (36.0-47.0); HEMOGLOBIN 13.2 g/dL (12.0-15.5); LYMPH # 1.5 x10^3/uL (1.0-4.8); LYMPH % 19 % (24-48); MEAN CORPUSCULAR HEMOGLOBIN 29 pg (25-35); MEAN CORPUSCULAR HGB CONC 33 g/dL (31-37); MEAN CORPUSCULAR VOLUME 89 fL (79-100); MONO # 0.6 x10^3/uL (0.0-1.1); MONO % 8 % (0-9); NEUT # 5.5 x10^3uL (1.8-7.7); NEUT % 68 % (31-73); PLATELET COUNT 323 x10^3/uL (140-400); RED BLOOD COUNT 4.48 x10^6/uL (3.50-5.40); RED CELL DISTRIBUTION WIDTH 14.4 % (11.5-14.5); WHITE BLOOD COUNT 8.1 x10^3/uL (4.0-11.0)
[2019-11-13 14:50] LABS: CALCIUM 8.4 mg/dL (8.5-10.1); CREATININE 0.7 mg/dL (0.6-1.0); GFR 86.2; POTASSIUM 4.2 mmol/L (3.5-5.1)
[2019-11-13 14:55] LABS: ALBUMIN 3.5 g/dL (3.4-5.0); ALBUMIN/GLOBULIN RATIO 1.1 (1.0-1.7); TOTAL BILIRUBIN 0.1 mg/dL (0.2-1.0); TOTAL PROTEIN 6.8 g/dL (6.4-8.2)
[2019-11-13 15:00] LABS: MAGNESIUM 2.3 mg/dL (1.8-2.4)
--- NOTE | 2019-11-13 15:13 | RAD ---
CHEST AP ONLY History: Chest pain. COMPARISON: 02/27/2019. FINDINGS: Cardiomediastinal silhouette is not enlarged. The aorta is mildly ectatic and tortuous, similar to prior. Mild markings in both lung bases, slightly more so than on the prior study, may just be atelectasis. No consolidated infiltrate. No evidence of pneumothorax. No evidence of pleural effusion. Bones appear grossly intact. IMPRESSION: Mild bibasilar markings, may represent atelectasis. No evidence of consolidating infiltrate. Electronically signed by: Jsese Alvarado MD (11/13/2019 3:11 PM) [id number]
--- NOTE | 2019-11-13 15:17 | RAD ---
Bilateral lower extremity arterial Doppler ultrasound HISTORY: Cold feet, discolored darkened toes. TECHNIQUE: Color Doppler, grayscale and duplex analysis performed of the right and left lower extremity arterial structures, from the common femoral artery through the runoff vessels. COMPARISON: None are available All velocity measurements are in centimeters per second. Right leg: Triphasic waveforms from the right common femoral artery through the popliteal artery, posterior tibial artery and peroneal artery. Monophasic waveforms at the anterior tibial and dorsalis pedis arteries. Velocities range from 52 through 102. No critical segmental velocity elevation is seen to suggest critical stenosis. No evidence of occlusion. Left leg: Triphasic waveform from the left common femoral artery through the superficial femoral artery. Biphasic waveform in the popliteal artery through the calf and ankle. Velocities range from 39 through 122. No critical segmental velocity elevation to suggest a high-grade stenosis. No evidence of occlusion. IMPRESSION: No sonographic evidence of occlusion or high-grade stenosis. Electronically signed by: Jesse Alvaraod MD (11/13/2019 3:15 PM) [facility]
--- NOTE | 2019-11-13 15:23 | PHYS DOC ---
Past History Past Medical History: Anxiety, CVA, High Cholesterol, Hypertension, Stroke, Other Past Surgical History: Appendectomy, Other Smoking: Cigarettes Alcohol Use: None Drug Use: None Adult General Chief Complaint Chief Complaint: MULTIPLE COMPLAINTS HPI HPI Patient is a 59-year-old female with history of CVA, affecting her left upper extremity and right lower extremity. Patient is mostly wheelchair bound, however sometimes She can get off and dragged herself to the bathroom. SHe came in today complaining of multiple problem, she complained of pain on the left-sided her rib cage, COMPLAINING OF PAIN IN HER FEET. These symptoms have been going on for 3 weeks. Patient said when she was in her wheel chair, she rested her toes on the floor. Patient denied any shortness of air, no fever. She is on plavix. Review of Systems Review of Systems All other ROS is negative unless otherwise noted in HPI Allergies Allergies Allergies Coded Allergies Type Severity Reaction Last Updated Verified Penicillins Allergy Intermediate hives 06/26/18 Yes aspirin Allergy Unknown throat swells up. 06/26/18 Yes coconut oil Adverse Reaction Severe Rash 06/26/18 Yes Physical Exam Physical Exam See above Constitutional: Well developed, well nourished, no acute distress, non-toxic appearance. [] HENT: Normocephalic, atraumatic, bilateral external ears normal, oropharynx moist, no oral exudates, nose normal. [] Eyes: PERRLA, EOMI, conjunctiva normal, no discharge. [] Neck: Normal range of motion, no tenderness, supple, no stridor. [] Cardiovascular:Heart rate regular rhythm, no murmur [] Lungs & Thorax: Bilateral breath sounds clear to auscultation [] Abdomen: Bowel sounds normal, soft, no tenderness, no masses, no pulsatile masses. [] Skin: the bottom part of all her toes appeared discolorated with dark brown appearance, open wound, appeared like pressed ulcers, cold to the touch. Back: No tenderness, no CVA tenderness. [] Extremities: No tenderness, no cyanosis, no clubbing, ROM intact, no edema. [] Neurologic: Alert and oriented X 3, Psychologic: Affect normal, judgement normal, mood normal. [] Current Patient Data Vital Signs Vital Signs Date Time Temp Pulse Resp B/P (MAP) Pulse Ox O2 Delivery O2 Flow Rate FiO2 11/13/19 15:10 90 18 123/74 (90) 99 Room Air 11/13/19 13:12 98.3 Lab Results Laboratory Tests Test 11/13/19 14:18 White Blood Count 8.1 x10^3/uL (4.0-11.0) Red Blood Count 4.48 x10^6/uL (3.50-5.40) Hemoglobin 13.2 g/dL (12.0-15.5) Hematocrit 39.9 % (36.0-47.0) Mean Corpuscular Volume 89 fL (79-100) Mean Corpuscular Hemoglobin 29 pg (25-35) Mean Corpuscular Hemoglobin Concent 33 g/dL (31-37) Red Cell Distribution Width 14.4 % (11.5-14.5) Platelet Count 323 x10^3/uL (140-400) Neutrophils (%) (Auto) 68 % (31-73) Lymphocytes (%) (Auto) 19 % (24-48) L Monocytes (%) (Auto) 8 % (0-9) Eosinophils (%) (Auto) 5 % (0-3) H Basophils (%) (Auto) 1 % (0-3) Neutrophils # (Auto) 5.5 x10^3uL (1.8-7.7) Lymphocytes # (Auto) 1.5 x10^3/uL (1.0-4.8) Monocytes # (Auto) 0.6 x10^3/uL (0.0-1.1) Eosinophils # (Auto) 0.4 x10^3/uL (0.0-0.7) Basophils # (Auto) 0.1 x10^3/uL (0.0-0.2) Prothrombin Time 9.4 SEC (9.4-11.4) Prothrombin Time INR 0.9 (0.9-1.1) Activated Partial Thromboplast Time 25 SEC (23-33) Sodium Level 145 mmol/L (136-145) Potassium Level 4.2 mmol/L (3.5-5.1) Chloride Level 107 mmol/L (98-107) Carbon Dioxide Level 28 mmol/L (21-32) Anion Gap 10 (6-14) Blood Urea Nitrogen 19 mg/dL (7-20) Creatinine 0.7 mg/dL (0.6-1.0) Estimated GFR (Cockcroft-Gault) 86.2 BUN/Creatinine Ratio 27 (6-20) H Glucose Level 106 mg/dL (70-99) H Calcium Level 8.4 mg/dL (8.5-10.1) L Magnesium Level 2.3 mg/dL (1.8-2.4) Total Bilirubin 0.1 mg/dL (0.2-1.0) L Aspartate Amino Transferase (AST) 20 U/L (15-37) Alanine Aminotransferase (ALT) 32 U/L (14-59) Alkaline Phosphatase 90 U/L (46-116) Troponin I Quantitative < 0.017 ng/mL (0-0.055) AZ-Aao-W-Type Natriuretic Peptide 330 pg/mL (0-124) H Total Protein 6.8 g/dL (6.4-8.2) Albumin 3.5 g/dL (3.4-5.0) Albumin/Globulin Ratio 1.1 (1.0-1.7) EKG EKG [] Radiology/Procedures Radiology/Procedures [][place] [address] IMAGING REPORT Signed PATIENT: SUSSY REYNAGA ACCOUNT: [id number] : 1960 LOCATION: ER AGE: 59 SEX: F EXAM STATUS: REG ER ORD. PHYSICIAN: RICO ANGEL DO REASON: BILATERAL FEET COLD, DARKEN TOES FOR 2 WEEKS PROCEDURE: ARTERIAL STUDY LOWER EXT BI Bilateral lower extremity arterial Doppler ultrasound HISTORY: Cold feet, discolored darkened toes. TECHNIQUE: Color Doppler, grayscale and duplex analysis performed of the right and left lower extremity arterial structures, from the common femoral artery through the runoff vessels. COMPARISON: None are available All velocity measurements are in centimeters per second. Right leg: Triphasic waveforms from the right common femoral artery through the popliteal artery, posterior tibial artery and peroneal artery. Monophasic waveforms at the anterior tibial and dorsalis pedis arteries. Velocities range from 52 through 102. No critical segmental velocity elevation is seen to suggest critical stenosis. No evidence of occlusion. Left leg: Triphasic waveform from the left common femoral artery through the superficial femoral artery. Biphasic waveform in the popliteal artery through the calf and ankle. Velocities range from 39 through 122. No critical segmental velocity elevation to suggest a high-grade stenosis. No evidence of occlusion. IMPRESSION: No sonographic evidence of occlusion or high-grade stenosis. Electronically signed by: Jesse Alvarado MD (11/13/2019 3:15 PM) [facility] DICTATED AND SIGNED BY: JESSE ALVARADO MD DATE: 11/13/191514 CC: PCP,DAWN; RICO ANGEL DO ~ [address] [address] IMAGING REPORT Signed PATIENT: SUSSY REYNAGA ACCOUNT: [id number] : 1960 LOCATION: ER AGE: 59 SEX: F EXAM STATUS: REG ER ORD. PHYSICIAN: RICO ANGEL DO REASON: CHEST PAIN PROCEDURE: CHEST AP ONLY CHEST AP ONLY History: Chest pain. COMPARISON: 02/27/2019. FINDINGS: Cardiomediastinal silhouette is not enlarged. The aorta is mildly ectatic and tortuous, similar to prior. Mild markings in both lung bases, slightly more so than on the prior study, may just be atelectasis. No consolidated infiltrate. No evidence of pneumothorax. No evidence of pleural effusion. Bones appear grossly intact. IMPRESSION: Mild bibasilar markings, may represent atelectasis. No evidence of consolidating infiltrate. Electronically signed by: Jesse Alvarado MD (11/13/2019 3:11 PM) [email or web address] DICTATED AND SIGNED BY: JESSE ALVARADO MD DATE: 11/13/191510 CC: PCP,DAWN; RCIO ANGEL DO ~ Course & Med Decision Making Course & Med Decision Making Pertinent Labs and Imaging studies reviewed. (See chart for details) Patient is a 59-year-old female who appeared to have Pressure ulcers on the bottom of her feet due to persistent resting her feet on the floor while she was sitting on the wheel chair. Patient will need to follow up with her family doctor to set up for wound care evaluation. Dragon Disclaimer Dragon Disclaimer This electronic medical record was generated, in whole or in part, using a voice recognition dictation system. Departure Departure: Impression: Primary Impression: Pain in both feet Additional Impression: Pressure ulcer of both feet, stage 1 Disposition: 01 HOME, SELF-CARE Condition: STABLE Referrals: PCP,NO (PCP) FOLLOW UP WITH YOUR DOCTOR THIS WEEK Patient Instructions: Abrasions, Pressure Ulcer Additional Instructions: Thank you for visiting our Emergency Department. We appreciate you trusting us with your care. If any additional problems come up don't hesitate to return to visit us. Please follow up with your primary care provider so they can plan additional care if needed and know about the problem that you had. If symptoms worsen come back to the Emergency Department. Any concerning symptoms that start such as chest pain, shortness of air, weakness or numbness on one side of the body, running high fevers or any other concerning symptoms return to the ER. Problem Qualifiers RICO ANGEL DO Nov 13, 2019 15:23
[2019-11-13] MEDS ORDERED: IV NORMAL SALINE 1,000ML 1,000 ML IV ONE (15:30)
[2019-11-13 17:10] VITALS: BP 124/75
--- NOTE | 2019-11-13 17:42 | EKG ---
[address] [address] Test Date: 2019-11-13 Test Time: 15:03:04 Pat Name: SUSSY REYNAGA Department: Room: Gender: F Administrative Sales Assistant: : 1960 Requested By: RICO ANGEL Order Number: [id number] Reading MD: Measurements Intervals Reform Rate: 71 P: 71 MI: 144 QRS: 24 QRSD: 78 T: 47 QT: 400 QTc: 435 Interpretive Statements SINUS RHYTHM QRS(T) CONTOUR ABNORMALITY CONSIDER INFERIOR MYOCARDIAL DAMAGE POSSIBLY ABNORMAL ECG RI6.01 No previous ECG available for comparison
== END 2019-11-13 17:09 | disposition home or self-care (01) ==
LOC: ER 12:56
DX: L89.621 Pressure ulcer of left heel, stage 1 (principal); L89.611 Pressure ulcer of right heel, stage 1; I10 Essential (primary) hypertension; E78.5 Hyperlipidemia, unspecified; F17.210 Nicotine dependence, cigarettes, uncomplicated; Z90.49 Acquired absence of other specified parts of digestive tract; Z88.0 Allergy status to penicillin; Z88.6 Allergy status to analgesic agent; Z88.8 Allergy status to other drugs, medicaments and biological substances
CPT/HCPCS: 36415; 71045; 80053; 83735; 83880; 84484; 85025; 85610; 85730; 93005; 93923; 99285; J7030

== ENCOUNTER 2019-11-29 00:39 | Emergency (ER) | payer OTHER ==
[~2019-11-29] VITALS: Ht 168.9 cm; Wt 45.4 kg
--- NOTE | 2019-11-29 00:50 | PHYS DOC ---
Past History Past Medical History: Anxiety, CVA, High Cholesterol, Hypertension, Stroke, Other Past Surgical History: Appendectomy, Other Smoking: Cigarettes Alcohol Use: None Drug Use: None Adult General Chief Complaint Chief Complaint: ..." My feet still hurt.. I was here the other day.. .for the same thing.. It hurt to wear my shoes.. ".. " I stubbed my feet.. and now they really hurt...".. " [facility].. " I need to be admitted.. [facility] HPI HPI Patient is a 59 year old female who presents with above hx and complaints bilateral foot pain. Patient does admit to stubbing her feet today. Patient had been worked up peripheral vascular disease previously. Patient has been advised to quit smoking in the past. Patient has history of multiple past medical issues. Patient has history of anxiety, CVA,COPD, elevated cholesterol, hypertension, CVA, peripheral vascular disease. Review of Systems Review of Systems Constitutional: Denies fever or chills [] Eyes: Denies change in visual acuity, redness, or eye pain [] HENT: Denies nasal congestion or sore throat [] Respiratory: Denies cough or shortness of breath [] Cardiovascular: No additional information not addressed in HPI [] GI: Denies abdominal pain, nausea, vomiting, bloody stools or diarrhea [] : Denies dysuria or hematuria [] Musculoskeletal: Complains of bilateral foot pain Integument: Denies rash or skin lesions [] Neurologic: Denies headache, focal weakness or sensory changes [] Endocrine: Denies polyuria or polydipsia [] All other systems were reviewed and found to be within normal limits, except as documented in this note. Family History Family History Noncontributory to presentation Current Medications Current Medications See nursing for home meds Allergies Allergies Allergies Coded Allergies Type Severity Reaction Last Updated Verified Penicillins Allergy Intermediate hives 06/26/18 Yes aspirin Allergy Unknown throat swells up. 06/26/18 Yes coconut oil Adverse Reaction Severe Rash 06/26/18 Yes Physical Exam Physical Exam Constitutional: no acute distress, non-toxic appearance. [] HENT: Normocephalic, atraumatic, bilateral external ears normal, oropharynx moist, no oral exudates, nose normal. [] Eyes: PERRLA, EOMI, conjunctiva normal, no discharge. [] Neck: Normal range of motion, no tenderness, supple, no stridor. Tracheostomy scar Cardiovascular:Heart rate regular rhythm, no murmur [] Lungs & Thorax: Bilateral breath sounds with apex with scattered wheezes throughout auscultation []old surgery scar Abdomen: Bowel sounds normal, soft, no tenderness, no masses, no pulsatile masses. []Old surgery scars Skin: Warm, dry, no erythema, no rash. [] Redness at pressure points on toes. Capillary refill in toes are 3 seconds. Back: No tenderness, no CVA tenderness. [] Extremities: Complaints of bilateral foot tenderness, no cyanosis, no clubbing, ROM intact, no edema. [] Arthritic changes. Decreased pedal pulses. Neurologic: Alert and oriented X 3, extremities on request, as distal sensory function, no new focal deficits per patient. Slurred speech is a chronic condition from previous CVA per pt. Psychologic: Affect anxious, judgement normal, mood normal. [] EKG EKG [] Radiology/Procedures Radiology/Procedures [] IMAGING REPORT Signed PATIENT: SUSSY REYNAGA ACCOUNT: [id number] : 1960 LOCATION: ER AGE: 59 SEX: F EXAM STATUS: REG ER ORD. PHYSICIAN: CRISTIAN MCDONNELL MD REASON: Bilateral feet pain PROCEDURE: FOOT BILAT 3V FOOT BILAT 3V History: Bilateral feet pain. Technique: 3 views bilateral feet. Comparison: None. Findings: Left foot: Normal alignment. No fracture. Flexion positioning of the digits. Soft tissues unremarkable. Right foot: Mild right hallux valgus. Soft tissue bunion formation overlying the right first metatarsal head. No fracture. Soft tissues unremarkable. Impression: 1. No acute osseous abnormality. 2. Mild right hallux valgus. Electronically signed by: Dinesh Kong DO (11/29/2019 1:57 AM) [id number] DICTATED AND SIGNED BY: DINESH KONG DO DATE: 11/29/19 0157 CC: CRISTIAN MCDONNELL MD; PCP,NO ~ Course & Med Decision Making Course & Med Decision Making Pertinent Labs and Imaging studies reviewed. (See chart for details) Patient advised must stop smoking. Take Tylenol for pain. Follow-up primary care. Arrangements made for [facility] to [facility] agreed to take her [facility]. Advised [facility]. Impression: 1. Foot Pain 2. Peripheral vascular disease 3. Tobacco use 4. Pressure Ulcer 5. Cotton Tipper Issues [] Dragon Disclaimer Dragon Disclaimer This electronic medical record was generated, in whole or in part, using a voice recognition dictation system. Departure Departure: Disposition: 01 HOME/RESIDENCE PRIOR TO ADM Condition: STABLE Referrals: PCP,NO (PCP) Heide Disclaimer This chart was dictated in whole or in part using Voice Recognition software in a busy, high-work load, and often noisy Emergency Department environment. It may contain unintended and wholly unrecognized errors or omissions. CRISTIAN MCDONNELL MD Nov 29, 2019 00:50
[2019-11-29] MEDS: ACETAMINOPHEN 500 MG TABLET PO ONE (02:00)
--- NOTE | 2019-11-29 02:00 | RAD ---
FOOT BILAT 3V History: Bilateral feet pain. Technique: 3 views bilateral feet. Comparison: None. Findings: Left foot: Normal alignment. No fracture. Flexion positioning of the digits. Soft tissues unremarkable. Right foot: Mild right hallux valgus. Soft tissue bunion formation overlying the right first metatarsal head. No fracture. Soft tissues unremarkable. Impression: 1. No acute osseous abnormality. 2. Mild right hallux valgus. Electronically signed by: Dinesh Rangel DO (11/29/2019 1:57 AM) [id number]
[2019-11-29 02:30] VITALS: BP 100/76
== END 2019-11-29 02:34 | disposition home or self-care (01) ==
LOC: ER 00:39
DX: M79.672 Pain in left foot (principal); M79.671 Pain in right foot; I73.9 Peripheral vascular disease, unspecified; J44.9 Chronic obstructive pulmonary disease, unspecified; E78.00 Pure hypercholesterolemia, unspecified; I10 Essential (primary) hypertension; Z86.73 Personal history of transient ischemic attack (TIA), and cerebral infarction without residual deficits; F17.210 Nicotine dependence, cigarettes, uncomplicated; Z88.0 Allergy status to penicillin; Z88.6 Allergy status to analgesic agent; Z88.8 Allergy status to other drugs, medicaments and biological substances
CPT/HCPCS: 73630; 99283

== ENCOUNTER 2020-01-16 16:12 | Emergency (ER) | payer OTHER ==
[~2020-01-16] VITALS: Ht 168.9 cm; Wt 45.4 kg
[~2020-01-16 16:12] MED LIST changes: -ASCO500T2 PO; +ASCO500T4 PO
[2020-01-16] MEDS: IV NORMAL SALINE 1,000ML 1,000 ML IV SCH (16:18)
[2020-01-16] MEDS: FAMOTIDINE 20 MG/2 ML VIAL IVP ONE (16:30)
[2020-01-16] MEDS: METOCLOPRAMIDE HCL 10 MG/2 ML VIAL. IVP ONE (16:30)
--- NOTE | 2020-01-16 16:34 | PHYS DOC ---
Past History Past Medical History: Anxiety, CVA, High Cholesterol, Hypertension, Stroke, Other Past Surgical History: Appendectomy, Other Smoking: Cigarettes Alcohol Use: None Drug Use: None General Adult EDM: Chief Complaint: NAUSEA/VOMITING/DIARRHEA HPI: HPI: 59-year-old homeless female past medical history significant for CVA with left- sided weakness (on Plavix), hypertension, hyperlipidemia, tobacco dependence, chronic low back pain and alcohol abuse, presents to the ED brought in by EMS with complaints of numerous episodes of loose watery diarrhea, nausea and scant bright red blood in emesis for the past 2 days. States she hasn't drank alcohol in a few weeks. Eating makes her diarrhea worse. Took tylenol at noon. Also reports a chronic productive cough and fever of 99 degrees. No h/o trauma or head injury. Review of systems: Denies associated hemoptysis, dyspnea, orthopnea, back pain, CVA tenderness, dysuria, hematuria, syncope, dizziness, chest pressure, rash or leg swelling. Review of Systems: Review of Systems: Constitutional: Denies fever or chills Eyes: Denies change in visual acuity HENT: Denies nasal congestion or sore throat Respiratory: Denies cough or shortness of breath Cardiovascular: Denies chest pain or edema GI: Denies abdominal pain, nausea, vomiting, bloody stools or diarrhea : Denies dysuria Musculoskeletal: Denies back pain or joint pain Integument: Denies rash Neurologic: Denies headache, focal weakness or sensory changes Endocrine: Denies polyuria or polydipsia Lymphatic: Denies swollen glands Psychiatric: Denies depression or anxiety Current Medications: Current Meds: Current Medications Medications (Trade) Dose Ordered Sig/Binh Start Time Stop Time Status Last Admin Dose Admin Famotidine (Pepcid Vial) 20 mg 1X ONCE 01/16/20 16:30 01/16/20 16:31 UNV Metoclopramide HCl (Reglan Vial) 10 mg 1X ONCE 01/16/20 16:30 01/16/20 16:31 UNV Sodium Chloride 1,000 ml @ 1,000 mls/hr Q1H 01/16/20 16:18 01/16/20 17:17 UNV Allergies: Allergies: Allergies Coded Allergies Type Severity Reaction Last Updated Verified Penicillins Allergy Intermediate hives 06/26/18 Yes aspirin Allergy Unknown throat swells up. 06/26/18 Yes coconut oil Adverse Reaction Severe Rash 06/26/18 Yes Physical Exam: PE: Constitutional: thin/malnourished, afebrile, no acute distress, non-toxic appearance-very talkative. HENT: Normocephalic, atraumatic, dry mucous membranes, no oral exudates, Eyes: PEOMI, conjunctiva normal, no discharge. Neck: Normal range of motion, no tenderness, supple, no stridor. Cardiovascular: regular rate, S1, S2 Lungs & Thorax: Bilateral equal chest rise, speaking in full sentences, no respiratory distress Abdomen: soft, no tenderness, +hepatomegaly, no masses, no pulsatile masses. Skin: Warm, dry, no erythema, no rash, no jaundice Back: No tenderness, no CVA tenderness. Extremities: No tenderness, no cyanosis, no clubbing, uses wheelchair (was sitting in it when ems picked her up), no edema. Neurologic: Alert and oriented X 3, normal motor function, normal sensory function, no focal deficits noted. Psychologic: Affect normal, judgement normal, mood normal. Current Patient Data: Vital Signs: Vital Signs Date Time Temp Pulse Resp B/P (MAP) Pulse Ox O2 Delivery O2 Flow Rate FiO2 01/16/20 16:17 98.4 98 18 138/88 (105) 95 Room Air Radiology/Procedures: Radiology/Procedures: PROCEDURE: ACUTE ABDOMEN SERIES ACUTE ABDOMEN SERIES 01/16/2020 4:21 PM INDICATION: Vomiting and diarrhea COMPARISON: None available. TECHNIQUE: Upright view of the abdomen, upright view of the chest and 2 supine views of abdomen are provided. FINDINGS/ IMPRESSION: 1. No free intraperitoneal air. Nonobstructive bowel gas pattern. No dilated loops of small or large bowel. No differential air-fluid levels are identified. 2. Suspect a 3.5 mm calculus in the mid to superior pole left kidney. No additional suspicious genitourinary calcifications are identified. Phleboliths are identified within the pelvis. 3. There is S-shaped scoliosis of the thoracolumbar spine. 4. Cardiomediastinal silhouette is within normal limits. No significant pleural effusions. No pulmonary vascular congestion or pneumothorax. Lungs are clear. Electronically signed by: Jaylin Vidal MD (01/16/2020 4:52 PM) [facility] Course & Med Decision Making: Course & Med Decision Making Pertinent Labs and Imaging studies reviewed. (See chart for details) Impression: Pt reports N/V/D -has been sleeping in the ed. No episodes of V/D - clean emesis basin. Imaging unremarkable. Pt with no active distress, afebrile, no leukocytosis or lab abnormality. Low suspicion for life threatening process considered GI bleed, pancreatitis, obstruction vs cardiac process, unlikely. Will prescribe zofran odt. Recommended liquid/brat diet - slowly advance to solids. PMD followup in 24-48 hours. Strict return precautions for abdominal pain, dehydration, etc. All of pts' questions were answered and she was stable at time of discharge. Dragon Disclaimer: Dragon Disclaimer: This electronic medical record was generated, in whole or in part, using a voice recognition dictation system. Departure Departure: Impression: Primary Impression: Vomiting and diarrhea Disposition: HOME, SELF-CARE Condition: STABLE Referrals: PCP,DAWN (PCP) Patient Instructions: Diarrhea, Nausea and Vomiting Scripts Ondansetron Hcl (ZOFRAN) 4 Mg Tablet 1 TAB PO PRN Q6HRS PRN for NAUSEA, #6 TAB Prov: LUANA MARTINEZ DO 01/16/20 LUANA MARTINEZ DO Jan 16, 2020 16:34
--- NOTE | 2020-01-16 16:55 | RAD ---
ACUTE ABDOMEN SERIES 01/16/2020 4:21 PM INDICATION: Vomiting and diarrhea COMPARISON: None available. TECHNIQUE: Upright view of the abdomen, upright view of the chest and 2 supine views of abdomen are provided. FINDINGS/ IMPRESSION: 1. No free intraperitoneal air. Nonobstructive bowel gas pattern. No dilated loops of small or large bowel. No differential air-fluid levels are identified. 2. Suspect a 3.5 mm calculus in the mid to superior pole left kidney. No additional suspicious genitourinary calcifications are identified. Phleboliths are identified within the pelvis. 3. There is S-shaped scoliosis of the thoracolumbar spine. 4. Cardiomediastinal silhouette is within normal limits. No significant pleural effusions. No pulmonary vascular congestion or pneumothorax. Lungs are clear. Electronically signed by: Jaylin Vidal MD (01/16/2020 4:52 PM) [facility]
[2020-01-16 16:58] LABS: BASO # 0.1 x10^3/uL (0.0-0.2); BASO % 1 % (0-3); EOS # 0.3 x10^3/uL (0.0-0.7); EOS % 3 % (0-3); HEMATOCRIT 42.3 % (36.0-47.0); HEMOGLOBIN 14.2 g/dL (12.0-15.5); LYMPH # 1.6 x10^3/uL (1.0-4.8); LYMPH % 18 % (24-48); MEAN CORPUSCULAR HEMOGLOBIN 30 pg (25-35); MEAN CORPUSCULAR HGB CONC 34 g/dL (31-37); MEAN CORPUSCULAR VOLUME 91 fL (79-100); MONO # 0.7 x10^3/uL (0.0-1.1); MONO % 8 % (0-9); NEUT # 6.2 x10^3uL (1.8-7.7); NEUT % 70 % (31-73); PLATELET COUNT 305 x10^3/uL (140-400); RED BLOOD COUNT 4.67 x10^6/uL (3.50-5.40); RED CELL DISTRIBUTION WIDTH 14.1 % (11.5-14.5); WHITE BLOOD COUNT 8.9 x10^3/uL (4.0-11.0)
[2020-01-16 17:08] LABS: CREATININE 0.5 mg/dL (0.6-1.0); GFR 127.2
[2020-01-16 17:15] LABS: ALBUMIN 4.1 g/dL (3.4-5.0); ALBUMIN/GLOBULIN RATIO 1.1 (1.0-1.7); TOTAL BILIRUBIN 0.2 mg/dL (0.2-1.0); TOTAL PROTEIN 7.8 g/dL (6.4-8.2)
[2020-01-16 17:27] VITALS: BP 136/75
[2020-01-16] MEDS ORDERED: ONDA4TAB7 PO (17:46)
== END 2020-01-16 17:52 | disposition home or self-care (01) ==
LOC: ER 16:12
DX: R19.7 Diarrhea, unspecified (principal); R11.2 Nausea with vomiting, unspecified; R50.9 Fever, unspecified; E78.00 Pure hypercholesterolemia, unspecified; I10 Essential (primary) hypertension; F17.210 Nicotine dependence, cigarettes, uncomplicated; Z86.73 Personal history of transient ischemic attack (TIA), and cerebral infarction without residual deficits; Z90.89 Acquired absence of other organs; Z88.0 Allergy status to penicillin; Z88.6 Allergy status to analgesic agent; Z88.8 Allergy status to other drugs, medicaments and biological substances
CPT/HCPCS: 36415; 74022; 80053; 83690; 84484; 85025; 96361; 96374; 96375; 99284; G0480; J2765; J3490; J7030

== ENCOUNTER 2020-07-26 13:58 | Emergency (ER) | payer OTHER ==
[~2020-07-26] VITALS: Ht 168.9 cm; Wt 45.4 kg
[~2020-07-26 13:58] MED LIST changes: +AMLO-187 PO; -AMLO10TA8 PO; +ONDA4TAB7 PO
--- NOTE | 2020-07-26 14:39 | EKG ---
[facility] ED [facility] [place] [id number] Test Date: 2020-07-26 Test Time: 14:09:00 Pat Name: SUSSY REYNAGA Department: Room: Gender: F Social Service Director: : [id number] Requested By: NOHEMI RAHMAN Order Number: [id number] Reading MD: Zach Becker Measurements Intervals Davidson Rate: 83 P: 65 IA: 148 QRS: 18 QRSD: 76 T: 54 QT: 376 QTc: 442 Interpretive Statements SINUS RHYTHM LEFT ATRIAL ABNORMALITY ABNORMAL ECG Electronically Signed On 07-29-2020 10:55:47 UPHOLSTERY SEWER by Zach Becker
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
--- NOTE | 2020-07-26 14:54 | RAD ---
EXAM: CHEST 1 VIEW History: Chest pain COMPARISON: None available. TECHNIQUE: Single portable radiograph of the chest FINDINGS: The cardiac silhouette is unremarkable. The lungs are clear bilaterally. The costophrenic sulci are clear and well demarcated. IMPRESSION: No radiographic evidence of an acute cardiopulmonary process. Electronically signed by: Juvenal Sousa MD (07/26/2020 2:51 PM) [id number]
[2020-07-26 14:58] VITALS: BP 158/106
[2020-07-26 14:59] LABS: CALCIUM 9.3 mg/dL (8.5-10.1); CREATININE 0.7 mg/dL (0.6-1.0); GFR 85.9; POTASSIUM 3.8 mmol/L (3.5-5.1)
[2020-07-26 15:11] LABS: ALBUMIN 3.9 g/dL (3.4-5.0); ALBUMIN/GLOBULIN RATIO 1.2 (1.0-1.7); TOTAL BILIRUBIN 0.1 mg/dL (0.2-1.0); TOTAL PROTEIN 7.2 g/dL (6.4-8.2)
[2020-07-26 15:15] LABS: BASO % 1 % (0-3); EOS # 0.3 x10^3/uL (0.0-0.7); EOS % 4 % (0-3); HEMATOCRIT 42.1 % (36.0-47.0); LYMPH # 1.7 x10^3/uL (1.0-4.8); LYMPH % 26 % (24-48); MEAN CORPUSCULAR HEMOGLOBIN 30 pg (25-35); MEAN CORPUSCULAR HGB CONC 33 g/dL (31-37); MEAN CORPUSCULAR VOLUME 91 fL (79-100); MONO # 0.6 x10^3/uL (0.0-1.1); MONO % 9 % (0-9); NEUT # 4.2 x10^3uL (1.8-7.7); NEUT % 61 % (31-73); PLATELET COUNT 292 x10^3/uL (140-400); RED BLOOD COUNT 4.65 x10^6/uL (3.50-5.40); RED CELL DISTRIBUTION WIDTH 14.2 % (11.5-14.5); WHITE BLOOD COUNT 6.8 x10^3/uL (4.0-11.0)
== END 2020-07-26 15:45 | disposition left against medical advice (07) ==
LOC: ER 13:58
DX: G89.29 Other chronic pain (principal); R51.9 Headache, unspecified; R07.9 Chest pain, unspecified; F41.9 Anxiety disorder, unspecified; E78.00 Pure hypercholesterolemia, unspecified; I10 Essential (primary) hypertension; Z86.73 Personal history of transient ischemic attack (TIA), and cerebral infarction without residual deficits; F17.210 Nicotine dependence, cigarettes, uncomplicated; Z88.0 Allergy status to penicillin; Z88.8 Allergy status to other drugs, medicaments and biological substances; Z88.6 Allergy status to analgesic agent
CPT/HCPCS: 36415; 71045; 80053; 83690; 83880; 84484; 85025; 93005; 99285

== ENCOUNTER → 2020-11-21 | Outpatient (CLI) | payer OTHER ==
[~2020-11-21] MED LIST changes: +IOHEXOL 240 MG/ML 50ML VIAL. ONE
--- NOTE | 2020-11-21 16:32 | RAD ---
INDICATION: Reason: ABDOMINAL PAIN. HX OF GALLSTONES. / Spl. Instructions: / History: . COMPARISON: May 2015 TECHNIQUE: Axial CT images obtained through the abdomen and pelvis without contrast. One or more of the following individualized dose reduction techniques were utilized for this examinat ion: 1. Automated exposure control; 2. Adjustment of the mA and/or kV according to patient size; 3 . Use of iterative reconstruction technique. FINDINGS: Severe calcific atherosclerosis. Suspect small hiatal hernia. High density material in the gallbladder could be from gallstones or sludge. Liver is prominent in size. No peripancreatic fluid collection. No perisplenic hematoma. Subcentimeter low-density left renal lesion could be from causes such as proteinaceous cyst. No left- sided hydronephrosis. Urinary bladder is partially distended. Mild indistinctness adjacent fat. There are multiple right renal cysts including one that is increased in size compared to prior curren tly measures 38 mm and was previously 11 mm Prominence of the right renal pelvis again seen. Subcutaneous edema in the left gluteal region with s ome subcutaneous calcifications. Colonic diverticulosis. Moderate stool throughout the colon. Appendix not well seen. No dilated loops of bowel to suggest obstruction. Degenerative changes the spine with scoliotic curvature as well as postoperative changes status post posterior decompression through a portion of the lumbar spine. Osseous demineralization. IMPRESSION: * No evidence of bowel obstruction. * There is some very mild indistinctness the fat adjacent to a diverticula at the left side of the c olon. This is a very mild finding but if the patient has symptoms in this location early diverticulit is is a consideration. * Cystic lesions are identified of the right kidney with one of these increased in size compared to prior. Electronically signed by: Lauri Ernandez MD (11/21/2020 4:30 PM) [id number]
== END ==
LOC: CT 13:33
PROVIDERS: ATTEND Surgery
DX: K57.30 Diverticulosis of large intestine without perforation or abscess without bleeding (principal); N28.89 Other specified disorders of kidney and ureter; I70.90 Unspecified atherosclerosis; N32.89 Other specified disorders of bladder; N28.1 Cyst of kidney, acquired; M47.816 Spondylosis without myelopathy or radiculopathy, lumbar region; M43.8X6 Other specified deforming dorsopathies, lumbar region
CPT/HCPCS: 74176